=== PATIENT | male | born 1945 | race Caucasian/White ===

== ENCOUNTER 2022-11-06 09:33 | Outpatient (CLI) | payer MEDICARE, SELFPAY ==
[2022-11-06 09:45] VITALS: BP 143/78; PULSE 68; RESP 20; TEMP 36.7; O2SAT 96
[2022-11-06 10:18] VITALS: PULSE 59; O2SAT 99
[2022-11-06] MEDS: Lidocaine 2% Pres-Free 5 ML VIAL IJ (10:26)
[2022-11-06] MEDS: methylPREDNISolone ACETATE 40 MG/ML VIAL IJ (10:27)
--- NOTE | 2022-11-06 10:35 | PDOC.PAIN_ITS ---
Date of service: 11/06/22 Time of Service: 10:35 Pain Managment Procedure Note Procedure Note Procedure Note: ULTRASOUND GUIDED LEFT THORACIC PARASPINAL AND RHOMBOID TRIGGER POINT INJECTIONS Pre-Procedural Evaluation: Edison Sabillon Jr has been referred to the [facility] for an Ultrasound Guided left thoracic paraspinal and rhomboid trigger point injections for a chief complaint of left upper back pain. Pre-procedure Pain Score: 3/10 Patient was interviewed and the medical record reviewed. There were no medical, pharmacologic, radiographic, or other structural contraindications to preforming an ultrasound guided injection. Risks and expected side effects as well as potential benefits of the procedure were reviewed. The patient consent form was signed and witnessed. Standard time-out procedure was performed. The use of direct ultrasound visualization of the needle (rather than a non- guided injection) was required to increase patient safety by excluding inadvertent intramuscular, intratendinous, or intraneural needle placement and minimizing bleeding by avoiding osteochondral or vascular injury from the needle. Additionally, the increased accuracy of placement may increase clinical effectiveness and will allow higher diagnostic specificity when evaluating effectiveness of this injection. Procedure Description: The patient was placed in the prone position and automated blood pressure cuff and pulse oximeter applied for monitoring during the procedure and recorded in the medical record. Pre-injection ultrasound scanning of the area of interest was performed using a linear transducer, identifying relevant anatomy, landmarks, and neurovascular structures allowing for optimal needle path. The site was then prepared in the usual sterile fashion, using thorough Chlorhexadine preparation of the skin and sterile draping. The same ultrasound transducer was then passed into the sterile field using sterile probe cover and sterile ultrasound gel. The injection target was again visualized. Skin and subcutaneous tissues were anesthetized with 2 mL of 1% Lidocaine. A 25G 1.5 skin needle was placed under live ultrasound guidance, using an in-plane approach, to the target area. After visualization of the needle tip at the target area, a mixture of 40 mg of Depomedrol (40 mg/cc) followed by 2 cc of 2% Lidocaine. 10 passes were made through each muscle. Ultrasound images were captured and stored for documentation purposes. Post-procedure Pain Score:0/10 Vital signs were stable throughout the procedure and were as recorded in the docflowsheet by the nursing staff. Follow up plans and appointments were discussed with the patient.Post procedure instruction was given as documented in nursing documentation and having met discharge criteria, they were discharged from the [facility]. COMMENTS: If he has good relief with this procedure, he can repeat this procedure Ernesto Rubio DO, MPH [facility]
== END 2022-11-06 09:34 | disposition home or self-care (01) ==
PROVIDERS: PCP Nurse Practitioner Family; Visit Provider Preventive Medicine Occupational Medicine
DX: M54.6 Pain in thoracic spine (principal); M79.18 Myalgia, other site
CPT/HCPCS: 20553; J1030